=== PATIENT | male | born 1990 | race Caucasian/White ===

== ENCOUNTER 2020-05-15 16:05 | Emergency (ER) | payer OTHER, SELFPAY ==
[~2020-05-15] VITALS: Ht 182.9 cm; Wt 142.9 kg
[2020-05-15 16:08] VITALS: Ht 182.9 cm; Wt 142.9 kg
[2020-05-15 16:57] VITALS: BP 134/85
== END 2020-05-15 19:57 | disposition home or self-care (01) ==
LOC: ED 16:05
DX: R05 Cough (principal); M79.10 Myalgia, unspecified site; Z20.828 Contact with and (suspected) exposure to other viral communicable diseases
CPT/HCPCS: U0003